=== PATIENT | female | born 1940 | race Caucasian/White ===

== ENCOUNTER 2019-05-18 21:47 | Emergency (ER) | payer MEDICARE ==
[~2019-05-18 21:47] MED LIST: ATOR10TA69 PO; CITA40TA6 PO; EZET10TA48 PO; LEVO50TA4 PO; LORA1TAB3 PO; METF-444 PO; MVI PO; NASAL SPRAY NASAL; OMEG-148 PO
[2019-05-18] MEDS ORDERED: CEPHALEXIN 500 MG CAPSULE ONE (22:33)
== END 2019-05-18 22:54 | disposition home or self-care (01) ==
LOC: EDH 21:47
DX: S61.253A Open bite of left middle finger without damage to nail, initial encounter (principal); E11.9 Type 2 diabetes mellitus without complications; E78.5 Hyperlipidemia, unspecified; F41.9 Anxiety disorder, unspecified; F32.9 Major depressive disorder, single episode, unspecified; Z88.1 Allergy status to other antibiotic agents; Z88.8 Allergy status to other drugs, medicaments and biological substances; W53.11XA Bitten by rat, initial encounter; Y93.89 Activity, other specified; Y92.89 Other specified places as the place of occurrence of the external cause; Y99.8 Other external cause status

== ENCOUNTER 2020-03-28 15:39 | Emergency (ER) | payer MEDICARE ==
[2020-03-28 16:12] LABS: BASOPHILS % (AUTO) 1.1 % (0.0-5.0); EOSINOPHILS % (AUTO) 2.9 % (0.0-8.0); HEMATOCRIT 37.8 % (36-48); LYMPHOCYTES % (AUTO) 39.3 % (21.0-51.0); MEAN CORPUSCULAR HEMOGLOBIN 30.2 pg (27.0-33.0); MEAN CORPUSCULAR HGB CONC 32.8 g/dL (32.0-36.0); MONOCYTES % (AUTO) 9.5 % (3.0-13.0); NEUTROPHILS % (AUTO) 46.9 % (40.0-77.0); PLATELET COUNT (AUTO) 236 K/uL (130-400); RED BLOOD CELL COUNT(AUTO) 4.11 MIL/uL (4.00-5.50); RED CELL DISTRIBUTION WIDTH 13.2 % (11.0-15.5); WHITE BLOOD COUNT (AUTO) 7.5 K/uL (4.8-10.8)
[2020-03-28 16:23] LABS: CREATININE 0.8 mg/dL (0.5-1.5); POTASSIUM 4.1 mmol/L (3.5-5.1)
[2020-03-28 16:27] LABS: ALBUMIN 4.1 g/dL (3.5-5.0); BILIRUBIN,TOTAL 0.2 mg/dL (0.2-1.0); TOTAL PROTEIN, SERUM 7.8 g/dL (6.0-8.3)
[2020-03-28] MEDS ORDERED: LORAZEPAM 0.5 MG TABLET ONE (16:44)
[2020-03-28 16:51] LABS: APPEARANCE,URINE Clear (CLEAR); BILIRUBIN,URINE Negative (NEGATIVE); COLOR,URINE Yellow (YELLOW); GLUCOSE, URINE (UA) Negative (NEGATIVE); KETONES,URINE Negative (NEGATIVE); LEUKOCYTE ESTERASE ,URINE Trace (NEGATIVE); NITRATE,URINE Negative (NEGATIVE); OCCULT BLOOD,URINE Negative (NEGATIVE); PH,URINE 6.5 (5.0-8.0); PROTEIN,URINE Negative (NEGATIVE); UROBILINOGEN,URINE 0.2 mg/dL (0.2-1.0)
[2020-03-28 17:15] LABS: BACTERIA,URINE Rare /HPF (None Seen); RBC,URINE 0-1 /HPF (0-1); SQUAMOUS EPITHELIAL CELL,UR 0-2 /HPF (0-2)
[2020-03-28] MEDS ORDERED: ENALAPRILAT DIHYDRATE 1.25MG/ML 1ML VIAL IV ONE (17:53)
[2020-03-28] MEDS ORDERED: LORAZEPAM 1 MG TABLET ONE (18:24)
== END 2020-03-28 18:45 | disposition home or self-care (01) ==
LOC: EDH 15:39
DX: I16.9 Hypertensive crisis, unspecified (principal); F41.8 Other specified anxiety disorders; R53.1 Weakness; I10 Essential (primary) hypertension; E11.9 Type 2 diabetes mellitus without complications; F32.9 Major depressive disorder, single episode, unspecified; E78.5 Hyperlipidemia, unspecified; Z88.1 Allergy status to other antibiotic agents
CPT/HCPCS: 36415; 80053; 81001; 84484; 85025; 93005; J3490

== ENCOUNTER 2020-03-31 01:18 | Emergency (ER) | payer MEDICARE ==
[2020-03-31] MEDS ORDERED: PREDNISONE 20 MG TABLET ONE (02:13)
[2020-03-31] MEDS ORDERED: VALACYCLOVIR HCL 500 MG TABLET ONE (02:41)
== END 2020-03-31 03:06 | disposition home or self-care (01) ==
LOC: EDH 01:18
DX: B02.9 Zoster without complications (principal); E11.9 Type 2 diabetes mellitus without complications; I10 Essential (primary) hypertension; E78.5 Hyperlipidemia, unspecified; E03.9 Hypothyroidism, unspecified; F32.9 Major depressive disorder, single episode, unspecified; F41.9 Anxiety disorder, unspecified; Z88.1 Allergy status to other antibiotic agents; Z88.8 Allergy status to other drugs, medicaments and biological substances

== ENCOUNTER 2020-04-02 12:15 | Emergency (ER) | payer MEDICARE ==
[2020-04-02] MEDS ORDERED: ONDANSETRON HCL 4 MG/2 ML VIAL ONE (12:43)
[2020-04-02 12:45] LABS: BASOPHILS % (AUTO) 0.5 % (0.0-5.0); EOSINOPHILS % (AUTO) 0.4 % (0.0-8.0); HEMATOCRIT 36.8 % (36-48); LYMPHOCYTES % (AUTO) 21.5 % (21.0-51.0); MEAN CORPUSCULAR HEMOGLOBIN 30.6 pg (27.0-33.0); MEAN CORPUSCULAR HGB CONC 34.2 g/dL (32.0-36.0); MEAN CORPUSCULAR VOLUME 89.3 fL (79-99); NEUTROPHILS % (AUTO) 64.3 % (40.0-77.0); PLATELET COUNT (AUTO) 214 K/uL (130-400); RED BLOOD CELL COUNT(AUTO) 4.12 MIL/uL (4.00-5.50); RED CELL DISTRIBUTION WIDTH 13.1 % (11.0-15.5); WHITE BLOOD COUNT (AUTO) 10.2 K/uL (4.8-10.8)
[2020-04-02 13:03] LABS: CREATININE 2.3 mg/dL (0.5-1.5); POTASSIUM 3.6 mmol/L (3.5-5.1)
[2020-04-02 13:08] LABS: INR 0.93 (0.85-1.15); PARTIAL THROMBOPLASTIN TIME 23.3 SEC (26.3-35.5); PROTHROMBIN TIME 10.1 SEC (9.6-11.6)
[2020-04-02 13:13] LABS: ALBUMIN 3.8 g/dL (3.5-5.0); BILIRUBIN,TOTAL 0.4 mg/dL (0.2-1.0); TOTAL PROTEIN, SERUM 7.6 g/dL (6.0-8.3)
[2020-04-02 14:07] LABS: APPEARANCE,URINE Clear (CLEAR); BILIRUBIN,URINE Negative (NEGATIVE); COLOR,URINE Yellow (YELLOW); GLUCOSE, URINE (UA) Negative (NEGATIVE); KETONES,URINE Negative (NEGATIVE); LEUKOCYTE ESTERASE ,URINE Negative (NEGATIVE); NITRATE,URINE Negative (NEGATIVE); OCCULT BLOOD,URINE Negative (NEGATIVE); PH,URINE 5.5 (5.0-8.0); PROTEIN,URINE POS 1+ mg/dL (NEGATIVE); UROBILINOGEN,URINE 0.2 mg/dL (0.2-1.0)
[2020-04-02 14:48] LABS: BACTERIA,URINE Rare /HPF (None Seen); RBC,URINE 0-1 /HPF (0-1)
[2020-04-02 14:49] LABS: SQUAMOUS EPITHELIAL CELL,UR Rare /HPF (0-2)
[2020-04-02] MEDS ORDERED: ACETAMINOPHEN EXTRA STRENGTH 500 MG TABLET ONE (15:31)
[2020-04-02] MEDS ORDERED: SODIUM CHLORIDE 0.9% 500ML 500 ML IV ONE (15:54)
== END 2020-04-02 17:13 | disposition home or self-care (01) ==
LOC: EDH 12:15
DX: R19.7 Diarrhea, unspecified (principal); F41.9 Anxiety disorder, unspecified; F32.9 Major depressive disorder, single episode, unspecified; E11.9 Type 2 diabetes mellitus without complications; E78.5 Hyperlipidemia, unspecified; Z88.8 Allergy status to other drugs, medicaments and biological substances; Z88.2 Allergy status to sulfonamides
CPT/HCPCS: 36415; 80053; 81001; 82270; 82550; 84484; 85025; 85610; 85730; 96374; 99283; J2405; J7040

== ENCOUNTER 2020-07-19 13:05 | Emergency (ER) | payer MEDICARE ==
[~2020-07-19 13:05] MED LIST changes: +CITA-108 PO; -CITA40TA6 PO
[2020-07-19 14:36] LABS: BASOPHILS % (AUTO) 0.3 % (0.0-5.0); EOSINOPHILS % (AUTO) 2.6 % (0.0-8.0); HEMATOCRIT 32.3 % (36-48); LYMPHOCYTES % (AUTO) 19.1 % (21.0-51.0); MEAN CORPUSCULAR HEMOGLOBIN 30.3 pg (27.0-33.0); MEAN CORPUSCULAR HGB CONC 33.4 g/dL (32.0-36.0); MEAN CORPUSCULAR VOLUME 90.7 fL (79-99); MONOCYTES % (AUTO) 5.9 % (3.0-13.0); NEUTROPHILS % (AUTO) 71.6 % (40.0-77.0); PLATELET COUNT (AUTO) 163 K/uL (130-400); RED BLOOD CELL COUNT(AUTO) 3.56 MIL/uL (4.00-5.50); RED CELL DISTRIBUTION WIDTH 12.6 % (11.0-15.5); WHITE BLOOD COUNT (AUTO) 6.1 K/uL (4.8-10.8)
[2020-07-19 14:47] LABS: CREATININE 0.7 mg/dL (0.5-1.5); POTASSIUM 3.1 mmol/L (3.5-5.1)
[2020-07-19 14:52] LABS: ALBUMIN 3.5 g/dL (3.5-5.0); BILIRUBIN,TOTAL 0.4 mg/dL (0.2-1.0); CRP QUANTITATIVE 43.6 mg/L (0.00-9.0); MAGNESIUM 1.4 mg/dL (1.80-2.40)
[2020-07-19 16:17] LABS: APPEARANCE,URINE Clear (CLEAR); BILIRUBIN,URINE Negative (NEGATIVE); COLOR,URINE Yellow (YELLOW); GLUCOSE, URINE (UA) Negative (NEGATIVE); KETONES,URINE Trace mg/dL (NEGATIVE); LEUKOCYTE ESTERASE ,URINE Negative (NEGATIVE); NITRATE,URINE Negative (NEGATIVE); OCCULT BLOOD,URINE Negative (NEGATIVE); PH,URINE 6.5 (5.0-8.0); PROTEIN,URINE Negative (NEGATIVE); UROBILINOGEN,URINE 0.2 mg/dL (0.2-1.0)
== END 2020-07-19 18:56 | disposition home or self-care (01) ==
LOC: EDH 13:05
DX: U07.1 COVID-19 (principal); J12.9 Viral pneumonia, unspecified; R53.82 Chronic fatigue, unspecified; F41.9 Anxiety disorder, unspecified; F32.9 Major depressive disorder, single episode, unspecified; E11.9 Type 2 diabetes mellitus without complications; E78.5 Hyperlipidemia, unspecified; Z88.2 Allergy status to sulfonamides
CPT/HCPCS: 36415; 70450; 80053; 81003; 83735; 84484; 85025; 86140; 87426; 93005

== ENCOUNTER 2020-07-21 16:49 | Inpatient (IN) | payer MEDICARE ==
[~2020-07-21] VITALS: Ht 160 cm; Wt 54.0 kg
[2020-07-21 18:17] LABS: BASOPHILS % (AUTO) 0.3 % (0.0-5.0); HEMATOCRIT 32.6 % (36-48); LYMPHOCYTES % (AUTO) 11.4 % (21.0-51.0); MEAN CORPUSCULAR HEMOGLOBIN 30.1 pg (27.0-33.0); MEAN CORPUSCULAR HGB CONC 33.7 g/dL (32.0-36.0); MEAN CORPUSCULAR VOLUME 89.3 fL (79-99); MONOCYTES % (AUTO) 4.3 % (3.0-13.0); NEUTROPHILS % (AUTO) 83.6 % (40.0-77.0); PLATELET COUNT (AUTO) 194 K/uL (130-400); RED BLOOD CELL COUNT(AUTO) 3.65 MIL/uL (4.00-5.50); RED CELL DISTRIBUTION WIDTH 12.5 % (11.0-15.5); WHITE BLOOD COUNT (AUTO) 6.9 K/uL (4.8-10.8)
[2020-07-21 18:39] LABS: B-TYPE NATRIURETIC PEPTIDE 179 pg/mL (0-100)
[2020-07-21 18:45] LABS: ALBUMIN 3.4 g/dL (3.5-5.0); BILIRUBIN,TOTAL 0.4 mg/dL (0.2-1.0); CREATININE 0.7 mg/dL (0.5-1.5); TOTAL PROTEIN, SERUM 6.8 g/dL (6.0-8.3)
[2020-07-21] MEDS ORDERED: DEXAMETHASONE SOD PHOSPHATE 10MG/ML 1ML VIAL ONE (20:01)
[2020-07-21] MEDS ORDERED: 0.9%NACL 50ML 50 ML IV ONE (20:02)
[2020-07-21] MEDS ORDERED: CEFTRIAXONE 1G VIAL ONE (20:02)
[2020-07-21 20:31] LABS: ABG BASE EXCESS 2.7 mmol/L (-2.0-3.0); ABG HCO3 25.7 mmol/L (21.0-28.0); ABG OXYGEN SATURATION 93.2 % (95.0-99.0); ABG PCO2 35 mmHg (32-45)
[2020-07-21] MEDS ORDERED: AZITHROMYCIN 500MG+NS 250ML 250 ML IV ONE (22:48)
[2020-07-21] MEDS ORDERED: POTASSIUM CHLORIDE 10% ELIXIR 20 MEQ/15 ML UDCUP ONE (22:48)
[2020-07-21] MEDS: DOXYCYCLINE 100MG+NS 250ML IV SCH (23:15)
[2020-07-21] MEDS ORDERED: ACETAMINOPHEN 325 MG TAB PO PRN ×2 (23:15)
[2020-07-21] MEDS ORDERED: ERGOCALCIFEROL (VITAMIN D2) 50,000 UNIT CAPSULE PO ONE (23:15)
[2020-07-21] MEDS: CEFTRIAXONE 1G VIAL IVP SCH (23:15)
[2020-07-21] MEDS ORDERED: GUAIFENESIN-DM 200/20 MG 10 ML PO PRN (23:15)
[2020-07-21] MEDS ORDERED: POTASSIUM CHLORIDE 20MEQ/100ML 100 ML IV PRN (23:15)
[2020-07-21] MEDS ORDERED: DEXTROSE 50%-WATER 50 ML DISP.SYRIN IV PRN (23:15)
[2020-07-21] MEDS: DEXAMETHASONE SOD PHOSPHATE 4 MG/ML 1ML VIAL IVP SCH (23:15)
[2020-07-21] MEDS ORDERED: ONDANSETRON 4MG INJ IV PRN (23:15)
[2020-07-21] MEDS ORDERED: GLUCAGON 1MG KIT 1 MG ML IM PRN (23:15)
[2020-07-21] MEDS ORDERED: LIDOCAINE HCL-MPF 1% 2ML VIAL IV PRN (23:15)
[2020-07-22] MEDS ORDERED: DOXYCYCLINE 100MG+NS 250ML 250 ML IV ONE ×2 (03:30→23:55)
[2020-07-22] MEDS: INSULIN HUMULIN R 100 UNIT/ML 3ML SQ SCH ×4 (07:30→21:00)
[2020-07-22] MEDS ORDERED: ASCORBIC ACID 500 MG TAB ONE (08:45)
[2020-07-22] MEDS ORDERED: ACETYLCYSTEINE 600 MG CAPSULE ONE ×2 (08:46→21:10)
[2020-07-22] MEDS ORDERED: POTASSIUM CHLORIDE 20MEQ/100ML 100 ML IV ONE (08:46)
[2020-07-22] MEDS ORDERED: LIDOCAINE HCL MPF 1% 5ML VIAL ONE (08:46)
[2020-07-22] MEDS ORDERED: ZINC SULFATE 220 CAPSULE ONE (08:46)
[2020-07-22] MEDS ORDERED: FAMOTIDINE 20MG VIAL IV ONE ×2 (08:47→21:10)
[2020-07-22] MEDS ORDERED: CEFTRIAXONE 1G VIAL ONE ×2 (08:47→23:55)
[2020-07-22] MEDS: FAMOTIDINE 20MG VIAL IV SCH ×2 (09:00→21:00)
[2020-07-22] MEDS: ACETYLCYSTEINE 600 MG CAPSULE PO SCH ×2 (09:00→21:00)
[2020-07-22] MEDS: ZINC SULFATE 220 CAPSULE PO SCH (09:00)
[2020-07-22] MEDS: ASCORBIC ACID 500 MG TAB PO SCH (09:00)
[2020-07-22] MEDS ORDERED: INSULIN HUMULIN R 100 UNIT/ML 3ML ONE ×5 (09:11→21:02)
[2020-07-22] MEDS: LEVOTHYROXINE 50 MCG TABLET PO SCH (09:22)
[2020-07-22 09:24] LABS: HEMATOCRIT 31.5 % (36-48); LYMPHOCYTES % (AUTO) 22.3 % (21.0-51.0); MEAN CORPUSCULAR HEMOGLOBIN 30.1 pg (27.0-33.0); MEAN CORPUSCULAR HGB CONC 33.7 g/dL (32.0-36.0); MEAN CORPUSCULAR VOLUME 89.5 fL (79-99); MONOCYTES % (AUTO) 4.5 % (3.0-13.0); PLATELET COUNT (AUTO) 185 K/uL (130-400); RED BLOOD CELL COUNT(AUTO) 3.52 MIL/uL (4.00-5.50); RED CELL DISTRIBUTION WIDTH 12.6 % (11.0-15.5); WHITE BLOOD COUNT (AUTO) 4.6 K/uL (4.8-10.8)
[2020-07-22 10:05] LABS: ALANINE AMINOTRANSFERASE 25 U/L (12-78); ALBUMIN 2.9 g/dL (3.5-5.0); ASPARTATE AMINOTRANSFERASE 27 U/L (10-37); BILIRUBIN,TOTAL 0.3 mg/dL (0.2-1.0); CARBON DIOXIDE 25 mmol/L (21-32); CHLORIDE 103 mmol/L (101-111); CREATININE 0.7 mg/dL (0.5-1.5); GLOMERULAR FILTR. RATE CALC 85 mL/min (>60); GLUCOSE,RANDOM 259 mg/dL (70-105); LACTATE DEHYDROGENASE 255 U/L (81-234); POTASSIUM 3.5 mmol/L (3.5-5.1); SODIUM SERUM 140 mmol/L (136-145); TOTAL PROTEIN, SERUM 7.1 g/dL (6.0-8.3); UREA NITROGEN, BLOOD 12 mg/dL (7-18)
[2020-07-22] MEDS: DOXYCYCLINE 100MG+NS 250ML IV SCH ×2 (11:15→23:15)
[2020-07-22] MEDS: CEFTRIAXONE 1G VIAL IVP SCH ×2 (11:15→23:15)
[2020-07-22] MEDS: FISH OIL 1000 MG/CAP PO SCH (12:00)
[2020-07-22] MEDS: LACTATED RINGERS 1000ML 1,000 ML IV SCH (15:00)
[2020-07-22] MEDS ORDERED: PHARMACY COMMUNICATION MISC SCH (16:15)
[2020-07-22] MEDS: ATORVASTATIN 10 MG TABLET PO SCH (21:00)
[2020-07-22] MEDS: CITALOPRAM 20 MG TABLET PO SCH (21:00)
[2020-07-22] MEDS: EZETIMIBE 10 MG TAB PO SCH (21:00)
[2020-07-22] MEDS ORDERED: ATORVASTATIN 10 MG TABLET ONE (21:10)
[2020-07-22] MEDS: DEXAMETHASONE SOD PHOSPHATE 4 MG/ML 1ML VIAL IVP SCH (23:15)
[2020-07-22] MEDS ORDERED: DEXAMETHASONE SOD PHOSPHATE 10MG/ML 1ML VIAL ONE (23:57)
[2020-07-23 03:10] VITALS: BP 164/70
[2020-07-23 06:25] LABS: BASOPHILS % (AUTO) 0.1 % (0.0-5.0); LYMPHOCYTES % (AUTO) 6.3 % (21.0-51.0); MEAN CORPUSCULAR HGB CONC 33.3 g/dL (32.0-36.0); MEAN CORPUSCULAR VOLUME 90.1 fL (79-99); MONOCYTES % (AUTO) 3.3 % (3.0-13.0); NEUTROPHILS % (AUTO) 89.8 % (40.0-77.0); PLATELET COUNT (AUTO) 207 K/uL (130-400); RED BLOOD CELL COUNT(AUTO) 3.33 MIL/uL (4.00-5.50); RED CELL DISTRIBUTION WIDTH 12.6 % (11.0-15.5); WHITE BLOOD COUNT (AUTO) 10.7 K/uL (4.8-10.8)
[2020-07-23 06:36] LABS: ALBUMIN 2.5 g/dL (3.5-5.0); BILIRUBIN,TOTAL 0.3 mg/dL (0.2-1.0); CREATININE 0.7 mg/dL (0.5-1.5); CRP QUANTITATIVE 69.1 mg/L (0.00-9.0); POTASSIUM 3.3 mmol/L (3.5-5.1); TOTAL PROTEIN, SERUM 6.2 g/dL (6.0-8.3)
[2020-07-23] MEDS: LEVOTHYROXINE 50 MCG TABLET PO SCH (06:44)
[2020-07-23] MEDS: INSULIN HUMULIN R 100 UNIT/ML 3ML SQ SCH ×4 (06:45→21:00)
[2020-07-23 07:10] VITALS: BP 119/56
[2020-07-23] MEDS: DEXAMETHASONE SOD PHOSPHATE 4 MG/ML 1ML VIAL IVP SCH (07:51)
[2020-07-23] MEDS: ASCORBIC ACID 500 MG TAB PO SCH (07:52)
[2020-07-23] MEDS: ZINC SULFATE 220 CAPSULE PO SCH (07:52)
[2020-07-23] MEDS: FAMOTIDINE 20MG VIAL IV SCH ×2 (07:52→22:07)
[2020-07-23] MEDS: ACETYLCYSTEINE 600 MG CAPSULE PO SCH ×2 (07:52→22:07)
[2020-07-23] MEDS: KCL 20 MEQ ERTAB PO PRN ×3 (10:22→12:16)
[2020-07-23] MEDS: LACTATED RINGERS 1000ML 1,000 ML IV SCH (10:23)
[2020-07-23] MEDS: MAGNESIUM 2GM PREMIX 50ML 50 ML IV PRN (10:23)
[2020-07-23 11:10] VITALS: BP 152/68
[2020-07-23] MEDS: DOXYCYCLINE 100MG+NS 250ML IV SCH ×2 (12:16→22:53)
[2020-07-23] MEDS: FISH OIL 1000 MG/CAP PO SCH (12:16)
[2020-07-23] MEDS: CEFTRIAXONE 1G VIAL IVP SCH ×2 (12:17→22:52)
[2020-07-23] MEDS ORDERED: PHARMACY COMMUNICATION MISC SCH (13:00)
[2020-07-23 13:19] LABS: CHOLESTEROL 123 mg/dL (<200); HDL CHOLESTEROL 45 mg/dL (35-85); LDL DIRECT 59 mg/dL (0-99); TRIGLYCERIDES 88 mg/dL (30-200)
[2020-07-23 15:08] VITALS: BP 172/87
[2020-07-23] MEDS ORDERED: REMDESIVIR (EUA) 520 200 MG in 0.9% NACL 250ML 250 ML IV ONE (16:00)
[2020-07-23] MEDS ORDERED: COMPOUND IV REFRIGERATED 1 EACH IVSOLN MISC PRN (16:00)
[2020-07-23] MEDS ORDERED: LORAZEPAM 0.5 MG TABLET PO PRN (16:30)
[2020-07-23] MEDS ORDERED: ENOXAPARIN SODIUM 40 MG/0.4 ML SYRINGE SQ SCH (18:15)
[2020-07-23] MEDS: ENOXAPARIN SODIUM 40 MG/0.4 ML SYRINGE SQ SCH (21:54)
[2020-07-23] MEDS: EZETIMIBE 10 MG TAB PO SCH (21:55)
[2020-07-23] MEDS: CITALOPRAM 20 MG TABLET PO SCH (21:55)
[2020-07-23] MEDS: ATORVASTATIN 10 MG TABLET PO SCH (21:55)
[2020-07-23 22:39] VITALS: BP 158/72
[2020-07-24] VITALS (7 sets, daily range): BP systolic 153–182; BP diastolic 70–83
[2020-07-24 05:59] LABS: BASOPHILS % (AUTO) 0.2 % (0.0-5.0); HEMATOCRIT 32.3 % (36-48); LYMPHOCYTES % (AUTO) 8.6 % (21.0-51.0); MEAN CORPUSCULAR HEMOGLOBIN 30.3 pg (27.0-33.0); MEAN CORPUSCULAR HGB CONC 34.1 g/dL (32.0-36.0); MONOCYTES % (AUTO) 2.9 % (3.0-13.0); NEUTROPHILS % (AUTO) 87.8 % (40.0-77.0); PLATELET COUNT (AUTO) 258 K/uL (130-400); RED BLOOD CELL COUNT(AUTO) 3.63 MIL/uL (4.00-5.50); RED CELL DISTRIBUTION WIDTH 12.5 % (11.0-15.5); WHITE BLOOD COUNT (AUTO) 12.8 K/uL (4.8-10.8)
[2020-07-24] MEDS ORDERED: PHARMACY COMMUNICATION MISC SCH (06:00)
[2020-07-24 06:13] LABS: ALBUMIN 2.4 g/dL (3.5-5.0); BILIRUBIN,TOTAL 0.3 mg/dL (0.2-1.0); CREATININE 0.7 mg/dL (0.5-1.5); CRP QUANTITATIVE 146.7 mg/L (0.00-9.0); MAGNESIUM 1.6 mg/dL (1.80-2.40); POTASSIUM 3.2 mmol/L (3.5-5.1); TOTAL PROTEIN, SERUM 6.3 g/dL (6.0-8.3)
[2020-07-24] MEDS: LEVOTHYROXINE 50 MCG TABLET PO SCH (06:26)
[2020-07-24] MEDS: INSULIN HUMULIN R 100 UNIT/ML 3ML SQ SCH ×4 (06:32→20:54)
[2020-07-24] MEDS: KCL 20 MEQ ERTAB PO PRN ×2 (06:42→13:56)
[2020-07-24] MEDS: MAGNESIUM 2GM PREMIX 50ML 50 ML IV PRN (08:33)
[2020-07-24] MEDS ORDERED: ENOXAPARIN SODIUM 40 MG/0.4 ML SYRINGE SQ SCH (09:00)
[2020-07-24] MEDS: ASCORBIC ACID 500 MG TAB PO SCH (09:46)
[2020-07-24] MEDS: ACETYLCYSTEINE 600 MG CAPSULE PO SCH (09:46)
[2020-07-24] MEDS: FAMOTIDINE 20MG VIAL IV SCH (09:46)
[2020-07-24] MEDS: ZINC SULFATE 220 CAPSULE PO SCH (09:46)
[2020-07-24] MEDS: POTASSIUM CHLORIDE 10% ELIXIR 20 MEQ/15 ML UDCUP PO PRN (09:46)
[2020-07-24] MEDS: ENOXAPARIN SODIUM 40 MG/0.4 ML SYRINGE SQ SCH ×2 (09:47→21:04)
[2020-07-24] MEDS: CEFTRIAXONE 1G VIAL IVP SCH (12:02)
[2020-07-24] MEDS: FISH OIL 1000 MG/CAP PO SCH (12:02)
[2020-07-24] MEDS: DOXYCYCLINE 100MG+NS 250ML IV SCH (13:35)
[2020-07-24] MEDS: REMDESIVIR (EUA) 520 100 MG in 0.9% NACL 250ML 250 ML IV SCH (15:55)
[2020-07-24] MEDS: CITALOPRAM 20 MG TABLET PO SCH (20:54)
[2020-07-24] MEDS: EZETIMIBE 10 MG TAB PO SCH (20:54)
[2020-07-24] MEDS: ATORVASTATIN 10 MG TABLET PO SCH (20:54)
[2020-07-24] MEDS: DEXAMETHASONE SOD PHOSPHATE 4 MG/ML 1ML VIAL IVP SCH (22:55)
[2020-07-25 03:47] VITALS: BP 145/64
[2020-07-25 05:18] LABS: BASOPHILS % (AUTO) 0.1 % (0.0-5.0); HEMATOCRIT 32.2 % (36-48); LYMPHOCYTES % (AUTO) 4.7 % (21.0-51.0); MEAN CORPUSCULAR HEMOGLOBIN 30.6 pg (27.0-33.0); MEAN CORPUSCULAR HGB CONC 34.2 g/dL (32.0-36.0); MEAN CORPUSCULAR VOLUME 89.7 fL (79-99); MONOCYTES % (AUTO) 2.8 % (3.0-13.0); NEUTROPHILS % (AUTO) 91.7 % (40.0-77.0); PLATELET COUNT (AUTO) 251 K/uL (130-400); RED BLOOD CELL COUNT(AUTO) 3.59 MIL/uL (4.00-5.50); RED CELL DISTRIBUTION WIDTH 12.8 % (11.0-15.5); WHITE BLOOD COUNT (AUTO) 12.4 K/uL (4.8-10.8)
[2020-07-25 05:39] LABS: CREATININE 0.6 mg/dL (0.5-1.5); POTASSIUM 3.6 mmol/L (3.5-5.1)
[2020-07-25] MEDS: LEVOTHYROXINE 50 MCG TABLET PO SCH (06:30)
[2020-07-25] MEDS: INSULIN HUMULIN R 100 UNIT/ML 3ML SQ SCH ×4 (06:31→20:46)
[2020-07-25 08:01] LABS: ALBUMIN 2.1 g/dL (3.5-5.0); BILIRUBIN,DIRECT 0.1 mg/dL (0.0-0.3); BILIRUBIN,TOTAL 0.4 mg/dL (0.2-1.0); MAGNESIUM 1.8 mg/dL (1.80-2.40); TOTAL PROTEIN, SERUM 5.8 g/dL (6.0-8.3)
[2020-07-25 08:04] VITALS: BP 149/69
[2020-07-25] MEDS: MAGNESIUM 2GM PREMIX 50ML 50 ML IV PRN (09:08)
[2020-07-25] MEDS: ASCORBIC ACID 500 MG TAB PO SCH (09:08)
[2020-07-25] MEDS: ZINC SULFATE 220 CAPSULE PO SCH (09:08)
[2020-07-25] MEDS: PANTOPRAZOLE 40 MG TAB DR PO SCH (09:08)
[2020-07-25] MEDS: ENOXAPARIN SODIUM 40 MG/0.4 ML SYRINGE SQ SCH ×2 (09:09→20:45)
[2020-07-25 12:00] VITALS: BP 143/90
[2020-07-25] MEDS: FISH OIL 1000 MG/CAP PO SCH (13:02)
[2020-07-25] MEDS: REMDESIVIR (EUA) 520 100 MG in 0.9% NACL 250ML 250 ML IV SCH (15:50)
[2020-07-25 16:00] VITALS: BP 123/54
[2020-07-25] MEDS: CITALOPRAM 20 MG TABLET PO SCH (20:45)
[2020-07-25] MEDS: EZETIMIBE 10 MG TAB PO SCH (20:45)
[2020-07-25] MEDS: ATORVASTATIN 10 MG TABLET PO SCH (20:45)
[2020-07-25 22:02] VITALS: BP 148/60
[2020-07-25] MEDS: DEXAMETHASONE SOD PHOSPHATE 4 MG/ML 1ML VIAL IVP SCH (22:19)
[2020-07-26 03:57] VITALS: BP 161/77
[2020-07-26 05:00] LABS: BASOPHILS % (AUTO) 0.1 % (0.0-5.0); EOSINOPHILS % (AUTO) 0.1 % (0.0-8.0); HEMATOCRIT 31.7 % (36-48); LYMPHOCYTES % (AUTO) 6.4 % (21.0-51.0); MEAN CORPUSCULAR VOLUME 91.4 fL (79-99); MONOCYTES % (AUTO) 3.4 % (3.0-13.0); NEUTROPHILS % (AUTO) 89.5 % (40.0-77.0); PLATELET COUNT (AUTO) 309 K/uL (130-400); RED BLOOD CELL COUNT(AUTO) 3.47 MIL/uL (4.00-5.50); RED CELL DISTRIBUTION WIDTH 12.7 % (11.0-15.5); WHITE BLOOD COUNT (AUTO) 15.1 K/uL (4.8-10.8)
[2020-07-26 05:15] LABS: CREATININE 0.6 mg/dL (0.5-1.5); MAGNESIUM 1.7 mg/dL (1.80-2.40); POTASSIUM 3.4 mmol/L (3.5-5.1)
[2020-07-26] MEDS: LEVOTHYROXINE 50 MCG TABLET PO SCH (05:56)
[2020-07-26] MEDS: INSULIN HUMULIN R 100 UNIT/ML 3ML SQ SCH ×4 (06:02→20:19)
[2020-07-26 08:13] LABS: ALBUMIN 2.1 g/dL (3.5-5.0); BILIRUBIN,DIRECT 0.2 mg/dL (0.0-0.3); BILIRUBIN,TOTAL 0.5 mg/dL (0.2-1.0); TOTAL PROTEIN, SERUM 5.8 g/dL (6.0-8.3)
[2020-07-26 09:20] VITALS: BP 167/74
[2020-07-26] MEDS: ZINC SULFATE 220 CAPSULE PO SCH (09:22)
[2020-07-26] MEDS: ASCORBIC ACID 500 MG TAB PO SCH (09:22)
[2020-07-26] MEDS: PANTOPRAZOLE 40 MG TAB DR PO SCH (09:22)
[2020-07-26] MEDS: KCL 20 MEQ ERTAB PO PRN ×2 (09:23→11:46)
[2020-07-26] MEDS: ENOXAPARIN SODIUM 40 MG/0.4 ML SYRINGE SQ SCH ×2 (09:24→20:21)
[2020-07-26] MEDS: MAGNESIUM 2GM PREMIX 50ML 50 ML IV PRN (09:24)
[2020-07-26 10:04] VITALS: BP 167/74
[2020-07-26] MEDS: FISH OIL 1000 MG/CAP PO SCH (11:37)
[2020-07-26] MEDS: AMLODIPINE 2.5 MG TAB PO SCH ×4 (13:07→20:21)
[2020-07-26] MEDS: REMDESIVIR (EUA) 520 100 MG in 0.9% NACL 250ML 250 ML IV SCH (15:25)
[2020-07-26 17:30] VITALS: BP 191/81
[2020-07-26 20:00] VITALS: BP 187/76
[2020-07-26] MEDS: CITALOPRAM 20 MG TABLET PO SCH (20:21)
[2020-07-26] MEDS: ATORVASTATIN 10 MG TABLET PO SCH (20:21)
[2020-07-26] MEDS: EZETIMIBE 10 MG TAB PO SCH (20:21)
[2020-07-26] MEDS: DEXAMETHASONE SOD PHOSPHATE 4 MG/ML 1ML VIAL IVP SCH (21:34)
[2020-07-26] MEDS ORDERED: DEXAMETHASONE SOD PHOSPHATE 4 MG/ML 1ML VIAL IVP SCH (22:00)
[2020-07-27] VITALS: BP 147/58
[2020-07-27 04:00] VITALS: BP 137/84
[2020-07-27] MEDS: LEVOTHYROXINE 50 MCG TABLET PO SCH (07:14)
[2020-07-27] MEDS: INSULIN HUMULIN R 100 UNIT/ML 3ML SQ SCH ×4 (07:14→20:44)
[2020-07-27 09:37] VITALS: BP 154/83
[2020-07-27] MEDS: DEXAMETHASONE SOD PHOSPHATE 4 MG/ML 1ML VIAL IVP SCH ×2 (09:38→20:40)
[2020-07-27] MEDS: ZINC SULFATE 220 CAPSULE PO SCH (09:39)
[2020-07-27] MEDS: AMLODIPINE 2.5 MG TAB PO SCH (09:39)
[2020-07-27] MEDS: ASCORBIC ACID 500 MG TAB PO SCH (09:39)
[2020-07-27] MEDS: PANTOPRAZOLE 40 MG TAB DR PO SCH (09:39)
[2020-07-27] MEDS: ENOXAPARIN SODIUM 40 MG/0.4 ML SYRINGE SQ SCH ×2 (09:40→20:40)
[2020-07-27 10:58] LABS: BASOPHILS % (AUTO) 0.1 % (0.0-5.0); EOSINOPHILS % (AUTO) 0.1 % (0.0-8.0); HEMATOCRIT 30.6 % (36-48); MEAN CORPUSCULAR HEMOGLOBIN 32.8 pg (27.0-33.0); MEAN CORPUSCULAR HGB CONC 35.3 g/dL (32.0-36.0); MONOCYTES % (AUTO) 2.5 % (3.0-13.0); NEUTROPHILS % (AUTO) 90.7 % (40.0-77.0); PLATELET COUNT (AUTO) 302 K/uL (130-400); RED BLOOD CELL COUNT(AUTO) 3.29 MIL/uL (4.00-5.50); WHITE BLOOD COUNT (AUTO) 14.2 K/uL (4.8-10.8)
[2020-07-27] MEDS ORDERED: KCL 20 MEQ ERTAB PO PRN (11:00)
[2020-07-27] MEDS ORDERED: POTASSIUM CHLORIDE 10% ELIXIR 20 MEQ/15 ML UDCUP PO PRN (11:00)
[2020-07-27] MEDS ORDERED: POTASSIUM CHLORIDE 10MEQ/100ML 100 ML IV PRN (11:00)
[2020-07-27] MEDS ORDERED: LIDOCAINE HCL-MPF 1% 2ML VIAL IV PRN (11:00)
[2020-07-27 11:09] LABS: CREATININE 0.6 mg/dL (0.5-1.5)
[2020-07-27 11:14] LABS: BILIRUBIN,TOTAL 0.5 mg/dL (0.2-1.0); TOTAL PROTEIN, SERUM 5.8 g/dL (6.0-8.3)
[2020-07-27] MEDS: FISH OIL 1000 MG/CAP PO SCH (12:25)
[2020-07-27 13:27] VITALS: BP 147/88
[2020-07-27] MEDS: REMDESIVIR (EUA) 520 100 MG in 0.9% NACL 250ML 250 ML IV SCH (16:24)
[2020-07-27 18:28] LABS: CRP QUANTITATIVE 288.4 mg/L (0.00-9.0)
[2020-07-27 18:45] VITALS: BP 162/93
[2020-07-27] MEDS: MAGNESIUM 2GM PREMIX 50ML 50 ML IV PRN (18:54)
[2020-07-27 20:00] VITALS: BP 169/76
[2020-07-27] MEDS: ATORVASTATIN 10 MG TABLET PO SCH (20:40)
[2020-07-27] MEDS: EZETIMIBE 10 MG TAB PO SCH (20:40)
[2020-07-27] MEDS: CITALOPRAM 20 MG TABLET PO SCH (20:40)
[2020-07-28] VITALS: BP 131/60
[2020-07-28 03:40] LABS: ABG BASE EXCESS 1.7 mmol/L (-2.0-3.0); ABG HCO3 25.8 mmol/L (21.0-28.0); ABG OXYGEN SATURATION 94.1 % (95.0-99.0); ABG PCO2 39 mmHg (32-45)
[2020-07-28 04:00] VITALS: BP 146/67
[2020-07-28] MEDS: LEVOTHYROXINE 50 MCG TABLET PO SCH (06:02)
[2020-07-28] MEDS: INSULIN HUMULIN R 100 UNIT/ML 3ML SQ SCH ×4 (06:04→21:46)
[2020-07-28 07:36] LABS: CREATININE 0.6 mg/dL (0.5-1.5)
[2020-07-28] MEDS: DEXAMETHASONE SOD PHOSPHATE 4 MG/ML 1ML VIAL IVP SCH ×2 (07:51→20:22)
[2020-07-28] MEDS: AMLODIPINE 2.5 MG TAB PO SCH ×2 (07:52→13:28)
[2020-07-28] MEDS: ASCORBIC ACID 500 MG TAB PO SCH (07:52)
[2020-07-28] MEDS: ZINC SULFATE 220 CAPSULE PO SCH (07:52)
[2020-07-28] MEDS: PANTOPRAZOLE 40 MG TAB DR PO SCH (07:52)
[2020-07-28] MEDS: ENOXAPARIN SODIUM 40 MG/0.4 ML SYRINGE SQ SCH (07:53)
[2020-07-28 10:27] LABS: CRP QUANTITATIVE 248.6 mg/L (0.00-9.0)
[2020-07-28] MEDS ORDERED: IOHEXOL-350 75 ML VIAL IV ONE (11:07)
[2020-07-28 12:05] VITALS: BP 184/79
[2020-07-28] MEDS: FISH OIL 1000 MG/CAP PO SCH (13:28)
[2020-07-28 16:00] VITALS: BP 159/74
[2020-07-28] MEDS: ATORVASTATIN 10 MG TABLET PO SCH (20:22)
[2020-07-28] MEDS: CITALOPRAM 20 MG TABLET PO SCH (20:23)
[2020-07-28] MEDS: EZETIMIBE 10 MG TAB PO SCH (20:23)
[2020-07-28] MEDS: ENOXAPARIN SODIUM 60 MG/0.6 ML SQ SCH (20:24)
[2020-07-28] MEDS ORDERED: ENOXAPARIN SODIUM 1 MG/KG SQ SCH (21:00)
[2020-07-28 23:07] VITALS: BP 203/79
[2020-07-28] MEDS ORDERED: LABETALOL 20MG SYG IV ONE (23:25)
[2020-07-28 23:31] VITALS: BP 193/78
[2020-07-29] VITALS (38 sets, daily range): BP systolic 137–203; BP diastolic 56–87
[2020-07-29] MEDS: LABETALOL 20MG VIAL IV SCH ×3 (00:43→16:51)
[2020-07-29] MEDS: LEVOTHYROXINE 50 MCG TABLET PO SCH (05:48)
[2020-07-29 07:09] LABS: BASOPHILS % (AUTO) 0.1 % (0.0-5.0); EOSINOPHILS % (AUTO) 0.1 % (0.0-8.0); HEMATOCRIT 35.3 % (36-48); LYMPHOCYTES % (AUTO) 2.9 % (21.0-51.0); MEAN CORPUSCULAR HEMOGLOBIN 31.5 pg (27.0-33.0); MEAN CORPUSCULAR HGB CONC 34.8 g/dL (32.0-36.0); MEAN CORPUSCULAR VOLUME 90.3 fL (79-99); PLATELET COUNT (AUTO) 250 K/uL (130-400); RED BLOOD CELL COUNT(AUTO) 3.91 MIL/uL (4.00-5.50); RED CELL DISTRIBUTION WIDTH 12.8 % (11.0-15.5); WHITE BLOOD COUNT (AUTO) 20.5 K/uL (4.8-10.8)
[2020-07-29 07:27] LABS: ALBUMIN 2.2 g/dL (3.5-5.0); BILIRUBIN,DIRECT 0.2 mg/dL (0.0-0.3); BILIRUBIN,TOTAL 0.4 mg/dL (0.2-1.0); CREATININE 0.7 mg/dL (0.5-1.5); CRP QUANTITATIVE 148.7 mg/L (0.00-9.0); TOTAL PROTEIN, SERUM 6.6 g/dL (6.0-8.3)
[2020-07-29] MEDS: DEXAMETHASONE SOD PHOSPHATE 4 MG/ML 1ML VIAL IVP SCH ×2 (07:59→21:16)
[2020-07-29] MEDS: ENOXAPARIN SODIUM 60 MG/0.6 ML SQ SCH ×2 (08:00→21:19)
[2020-07-29] MEDS: ASCORBIC ACID 500 MG TAB PO SCH (08:02)
[2020-07-29] MEDS: ZINC SULFATE 220 CAPSULE PO SCH (08:02)
[2020-07-29] MEDS: INSULIN HUMULIN R 100 UNIT/ML 3ML SQ SCH ×4 (08:03→21:21)
[2020-07-29] MEDS: PANTOPRAZOLE 40 MG TAB DR PO SCH (08:06)
[2020-07-29] MEDS ORDERED: PHARMACY COMMUNICATION MISC SCH (08:45)
[2020-07-29] MEDS ORDERED: LINEZOLID 600 MG/ISO-OSM 300 ML IV SCH (09:15)
[2020-07-29] MEDS: FUROSEMIDE 20MG VIAL IV SCH ×2 (09:48→21:18)
[2020-07-29] MEDS: MEROPENEM 1 GM VIAL IVP SCH ×2 (09:48→16:48)
[2020-07-29] MEDS: LINEZOLID 600 MG/ISO-OSM 300 ML IV SCH ×2 (10:30→22:54)
[2020-07-29] MEDS: AMLODIPINE 2.5 MG TAB PO SCH (11:33)
[2020-07-29] MEDS: FISH OIL 1000 MG/CAP PO SCH (11:33)
[2020-07-29] MEDS ORDERED: INSULIN GLARGINE 100 UNITS/ML 10 ML VIAL SQ SCH (12:15)
[2020-07-29] MEDS ORDERED: METOPROLOL TARTRATE 25 MG TAB PO SCH (13:30)
[2020-07-29 14:11] LABS: HEMOGLOBIN A1C 7.9 % (4.0-6.0)
[2020-07-29] MEDS: CITALOPRAM 20 MG TABLET PO SCH (21:15)
[2020-07-29] MEDS: EZETIMIBE 10 MG TAB PO SCH (21:15)
[2020-07-29] MEDS: METOPROLOL TARTRATE 25 MG TAB PO SCH (21:16)
[2020-07-29] MEDS: ATORVASTATIN 10 MG TABLET PO SCH (21:18)
[2020-07-30] VITALS (44 sets, daily range): BP systolic 124–184; BP diastolic 52–74
[2020-07-30] MEDS: MEROPENEM 1 GM VIAL IVP SCH ×3 (02:25→16:38)
[2020-07-30 05:21] LABS: BASOPHILS % (AUTO) 0.1 % (0.0-5.0); HEMATOCRIT 32.5 % (36-48); LYMPHOCYTES % (AUTO) 4.2 % (21.0-51.0); MEAN CORPUSCULAR HEMOGLOBIN 31.8 pg (27.0-33.0); MEAN CORPUSCULAR HGB CONC 35.4 g/dL (32.0-36.0); MEAN CORPUSCULAR VOLUME 89.8 fL (79-99); MONOCYTES % (AUTO) 2.6 % (3.0-13.0); PLATELET COUNT (AUTO) 244 K/uL (130-400); RED BLOOD CELL COUNT(AUTO) 3.62 MIL/uL (4.00-5.50); RED CELL DISTRIBUTION WIDTH 12.5 % (11.0-15.5); WHITE BLOOD COUNT (AUTO) 17.9 K/uL (4.8-10.8)
[2020-07-30] MEDS: LEVOTHYROXINE 50 MCG TABLET PO SCH (05:33)
[2020-07-30 05:35] LABS: ALBUMIN 2.1 g/dL (3.5-5.0); BILIRUBIN,DIRECT 0.2 mg/dL (0.0-0.3); BILIRUBIN,TOTAL 0.5 mg/dL (0.2-1.0); CREATININE 0.8 mg/dL (0.5-1.5); CRP QUANTITATIVE 78.3 mg/L (0.00-9.0); POTASSIUM 3.7 mmol/L (3.5-5.1); TOTAL PROTEIN, SERUM 6.1 g/dL (6.0-8.3)
[2020-07-30] MEDS: INSULIN HUMULIN R 100 UNIT/ML 3ML SQ SCH ×4 (06:38→22:17)
[2020-07-30] MEDS ORDERED: AMLODIPINE 5 MG TAB ONE (07:28)
[2020-07-30] MEDS: DEXAMETHASONE SOD PHOSPHATE 4 MG/ML 1ML VIAL IVP SCH ×2 (07:32→22:14)
[2020-07-30] MEDS: METOPROLOL TARTRATE 25 MG TAB PO SCH ×2 (07:33→22:15)
[2020-07-30] MEDS: FUROSEMIDE 20MG VIAL IV SCH ×2 (07:33→22:15)
[2020-07-30] MEDS: ZINC SULFATE 220 CAPSULE PO SCH (07:34)
[2020-07-30] MEDS: ENOXAPARIN SODIUM 60 MG/0.6 ML SQ SCH ×2 (07:34→22:16)
[2020-07-30] MEDS: ASCORBIC ACID 500 MG TAB PO SCH (07:35)
[2020-07-30] MEDS: AMLODIPINE 5 MG TAB PO SCH (07:35)
[2020-07-30] MEDS: LINEZOLID 600 MG/ISO-OSM 300 ML IV SCH ×2 (07:39→22:57)
[2020-07-30] MEDS: PANTOPRAZOLE 40 MG TAB DR PO SCH (07:43)
[2020-07-30] MEDS ORDERED: INSULIN GLARGINE 100 UNITS/ML 10 ML VIAL SQ SCH (08:30)
[2020-07-30] MEDS: FISH OIL 1000 MG/CAP PO SCH (10:35)
[2020-07-30] MEDS: POTASSIUM CHLORIDE 10% ELIXIR 20 MEQ/15 ML UDCUP PO PRN (10:37)
[2020-07-30] MEDS: LABETALOL 20MG VIAL IV SCH (11:33)
[2020-07-30] MEDS: FLUCONAZOLE 200 MG/NS 100 ML 100 ML IV SCH (15:23)
[2020-07-30] MEDS: ATORVASTATIN 10 MG TABLET PO SCH (22:14)
[2020-07-30] MEDS: CITALOPRAM 20 MG TABLET PO SCH (22:14)
[2020-07-30] MEDS: EZETIMIBE 10 MG TAB PO SCH (22:15)
[2020-07-31] VITALS (42 sets, daily range): BP systolic 117–177; BP diastolic 53–80
[2020-07-31] MEDS: MEROPENEM 1 GM VIAL IVP SCH ×3 (02:26→18:29)
[2020-07-31 04:48] LABS: ALBUMIN 2.2 g/dL (3.5-5.0); BILIRUBIN,TOTAL 0.4 mg/dL (0.2-1.0); CREATININE 0.9 mg/dL (0.5-1.5); POTASSIUM 3.6 mmol/L (3.5-5.1); TOTAL PROTEIN, SERUM 6.1 g/dL (6.0-8.3)
[2020-07-31] MEDS: LEVOTHYROXINE 50 MCG TABLET PO SCH (05:32)
[2020-07-31 05:55] LABS: BASOPHILS % (AUTO) 0.1 % (0.0-5.0); HEMATOCRIT 33.6 % (36-48); LYMPHOCYTES % (AUTO) 5.2 % (21.0-51.0); MEAN CORPUSCULAR HEMOGLOBIN 30.9 pg (27.0-33.0); MEAN CORPUSCULAR HGB CONC 34.5 g/dL (32.0-36.0); MEAN CORPUSCULAR VOLUME 89.6 fL (79-99); MONOCYTES % (AUTO) 2.1 % (3.0-13.0); NEUTROPHILS % (AUTO) 91.3 % (40.0-77.0); PLATELET COUNT (AUTO) 245 K/uL (130-400); RED BLOOD CELL COUNT(AUTO) 3.75 MIL/uL (4.00-5.50); RED CELL DISTRIBUTION WIDTH 12.5 % (11.0-15.5)
[2020-07-31 06:05] LABS: CRP QUANTITATIVE 44.3 mg/L (0.00-9.0)
[2020-07-31] MEDS: INSULIN HUMULIN R 100 UNIT/ML 3ML SQ SCH ×4 (06:51→21:59)
[2020-07-31] MEDS: PANTOPRAZOLE 40 MG TAB DR PO SCH (07:52)
[2020-07-31] MEDS: FLUCONAZOLE 200 MG/NS 100 ML 100 ML IV SCH (07:52)
[2020-07-31] MEDS: POTASSIUM CHLORIDE 10% ELIXIR 20 MEQ/15 ML UDCUP PO PRN (07:52)
[2020-07-31] MEDS: DEXAMETHASONE SOD PHOSPHATE 4 MG/ML 1ML VIAL IVP SCH ×2 (07:53→21:58)
[2020-07-31] MEDS: AMLODIPINE 5 MG TAB PO SCH (07:53)
[2020-07-31] MEDS: ASCORBIC ACID 500 MG TAB PO SCH (07:53)
[2020-07-31] MEDS: ENOXAPARIN SODIUM 60 MG/0.6 ML SQ SCH (07:54)
[2020-07-31] MEDS: METOPROLOL TARTRATE 25 MG TAB PO SCH ×2 (07:54→21:56)
[2020-07-31] MEDS: ZINC SULFATE 220 CAPSULE PO SCH (07:55)
[2020-07-31] MEDS: FUROSEMIDE 20MG VIAL IV SCH ×2 (07:59→22:14)
[2020-07-31] MEDS: LINEZOLID 600 MG/ISO-OSM 300 ML IV SCH ×2 (10:35→23:06)
[2020-07-31] MEDS: FISH OIL 1000 MG/CAP PO SCH (12:38)
[2020-07-31] MEDS: EZETIMIBE 10 MG TAB PO SCH (21:56)
[2020-07-31] MEDS: CITALOPRAM 20 MG TABLET PO SCH (21:56)
[2020-07-31] MEDS: ENOXAPARIN SODIUM 30 MG/0.3 ML SQ SCH (21:57)
[2020-07-31] MEDS: ATORVASTATIN 10 MG TABLET PO SCH (21:58)
[2020-08-01] VITALS (12 sets, daily range): BP systolic 116–144; BP diastolic 49–74
[2020-08-01] MEDS: MEROPENEM 1 GM VIAL IVP SCH ×2 (02:41→11:31)
[2020-08-01 04:52] LABS: ALBUMIN 2.2 g/dL (3.5-5.0); BILIRUBIN,TOTAL 0.4 mg/dL (0.2-1.0); CREATININE 0.9 mg/dL (0.5-1.5); CRP QUANTITATIVE 30.3 mg/L (0.00-9.0); POTASSIUM 3.7 mmol/L (3.5-5.1)
[2020-08-01 05:24] LABS: BASOPHILS % (AUTO) 0.1 % (0.0-5.0); HEMATOCRIT 35.4 % (36-48); LYMPHOCYTES % (AUTO) 5.2 % (21.0-51.0); MEAN CORPUSCULAR HGB CONC 33.9 g/dL (32.0-36.0); MEAN CORPUSCULAR VOLUME 88.5 fL (79-99); MONOCYTES % (AUTO) 3.2 % (3.0-13.0); NEUTROPHILS % (AUTO) 90.4 % (40.0-77.0); PLATELET COUNT (AUTO) 226 K/uL (130-400); RED CELL DISTRIBUTION WIDTH 12.4 % (11.0-15.5); WHITE BLOOD COUNT (AUTO) 16.7 K/uL (4.8-10.8)
[2020-08-01] MEDS: LEVOTHYROXINE 50 MCG TABLET PO SCH (06:25)
[2020-08-01] MEDS: INSULIN HUMULIN R 100 UNIT/ML 3ML SQ SCH ×2 (06:25→12:32)
[2020-08-01] MEDS: ENOXAPARIN SODIUM 30 MG/0.3 ML SQ SCH (08:16)
[2020-08-01] MEDS: DEXAMETHASONE SOD PHOSPHATE 4 MG/ML 1ML VIAL IVP SCH (08:16)
[2020-08-01] MEDS: AMLODIPINE 5 MG TAB PO SCH (08:16)
[2020-08-01] MEDS: ASCORBIC ACID 500 MG TAB PO SCH (08:16)
[2020-08-01] MEDS: PANTOPRAZOLE 40 MG TAB DR PO SCH (08:17)
[2020-08-01] MEDS: METOPROLOL TARTRATE 25 MG TAB PO SCH (08:17)
[2020-08-01] MEDS: ZINC SULFATE 220 CAPSULE PO SCH (08:17)
[2020-08-01] MEDS: FUROSEMIDE 20MG VIAL IV SCH (08:18)
[2020-08-01] MEDS: FLUCONAZOLE 200 MG/NS 100 ML 100 ML IV SCH (08:18)
[2020-08-01] MEDS: LINEZOLID 600 MG/ISO-OSM 300 ML IV SCH (11:30)
[2020-08-01] MEDS: FISH OIL 1000 MG/CAP PO SCH (11:31)
== END 2020-08-01 15:31 | DRG 871 ==
LOC: EDH 16:49 → EDHIP 23:05 → 4BH 07-23 03:05 → 2CV 07-28 22:36
PROVIDERS: ADMIT Internal Medicine; ATTEND Internal Medicine
PROC: XW033E5 Introduction of Remdesivir Anti-infective into Peripheral Vein, Percutaneous Approach, New Technology Group 5 (ICD-10-PCS; principal; 2020-07-23)
PROC: 5A0935A Assistance with Respiratory Ventilation, Less than 24 Consecutive Hours, High Flow/Velocity Cannula (ICD-10-PCS; 2020-07-24)
PROC: 5A0935A Assistance with Respiratory Ventilation, Less than 24 Consecutive Hours, High Flow/Velocity Cannula (ICD-10-PCS; 2020-07-25)
PROC: 5A0935A Assistance with Respiratory Ventilation, Less than 24 Consecutive Hours, High Flow/Velocity Cannula (ICD-10-PCS; 2020-07-26)
PROC: 5A0935A Assistance with Respiratory Ventilation, Less than 24 Consecutive Hours, High Flow/Velocity Cannula (ICD-10-PCS; 2020-07-27)
PROC: 5A0935A Assistance with Respiratory Ventilation, Less than 24 Consecutive Hours, High Flow/Velocity Cannula (ICD-10-PCS; 2020-07-28)
PROC: 5A0935A Assistance with Respiratory Ventilation, Less than 24 Consecutive Hours, High Flow/Velocity Cannula (ICD-10-PCS; 2020-07-29)
PROC: 5A0935A Assistance with Respiratory Ventilation, Less than 24 Consecutive Hours, High Flow/Velocity Cannula (ICD-10-PCS; 2020-07-30)
PROC: 5A0935A Assistance with Respiratory Ventilation, Less than 24 Consecutive Hours, High Flow/Velocity Cannula (ICD-10-PCS; 2020-07-31)
PROC: 5A0935A Assistance with Respiratory Ventilation, Less than 24 Consecutive Hours, High Flow/Velocity Cannula (ICD-10-PCS; 2020-08-01)
DX: A41.9 Sepsis, unspecified organism (principal); U07.1 COVID-19; J96.01 Acute respiratory failure with hypoxia; J12.82 Pneumonia due to coronavirus disease 2019; E43 Unspecified severe protein-calorie malnutrition; J80 Acute respiratory distress syndrome; D68.59 Other primary thrombophilia; J98.11 Atelectasis; B37.0 Candidal stomatitis; N13.9 Obstructive and reflux uropathy, unspecified; K12.30 Oral mucositis (ulcerative), unspecified; E87.6 Hypokalemia; E11.65 Type 2 diabetes mellitus with hyperglycemia; F41.9 Anxiety disorder, unspecified; F32.9 Major depressive disorder, single episode, unspecified; E83.42 Hypomagnesemia; E27.8 Other specified disorders of adrenal gland; R54 Age-related physical debility; E78.5 Hyperlipidemia, unspecified; I10 Essential (primary) hypertension; Z90.710 Acquired absence of both cervix and uterus; Z90.49 Acquired absence of other specified parts of digestive tract; Z83.3 Family history of diabetes mellitus; Z82.49 Family history of ischemic heart disease and other diseases of the circulatory system; Z82.0 Family history of epilepsy and other diseases of the nervous system; Z81.8 Family history of other mental and behavioral disorders; Z74.01 Bed confinement status; Z68.21 Body mass index [BMI] 21.0-21.9, adult; Z88.8 Allergy status to other drugs, medicaments and biological substances; Z91.018 Allergy to other foods; Z88.2 Allergy status to sulfonamides; Z88.1 Allergy status to other antibiotic agents; Z91.040 Latex allergy status
CPT/HCPCS: 36415; 36600; 70450; 71045; 71275; 80048; 80053; 80061; 80076; 81003; 82550; 82728; 82803; 82948; 83036; 83615; 83690; 83735; 83880; 84145; 84484; 85025; 85378; 86140; 86900; 86901; 87040; 87426; 87804; 93005; 93306; 93356; G0378; J0456; J0696; J1100; J1450; J1650; J1815; J1940; J2020; J2185; J2405; J3475; J3480; J3490; J7050; J7120; Q9967